=== PATIENT | female | born 1995 ===

== ENCOUNTER 2017-06-03 11:07 | Emergency (ER) ==
[2017-06-03 18:00] LABS: HIV (1/2) Antibody/Antigen Non-Reactive (NonReactive); HIV 1/2 INDEX 0.07 S/CO (<1.00); Hep C IgG Ab Non-Reactive (NonReactive); Hep C Index 0.09 S/CO (0-0.79)
[2017-06-03 19:13] LABS: HBSAB Concentration 27.62 mIU/mL; Hep B Surf AB Reactive (NonReactive)
== END 2017-06-03 11:59 | disposition home or self-care (01) ==
LOC: MADERS 11:07
DX: Z77.21 Contact with and (suspected) exposure to potentially hazardous body fluids (principal)
CPT/HCPCS: 36415; 86706; 86803; 87389; 99283